=== PATIENT | female | born 1995 | race Caucasian/White ===

== ENCOUNTER 2018-10-31 10:11 | Day surgery (SDC) | payer MEDICAID, SELFPAY ==
--- NOTE | 2018-10-29 12:11 | PCM.HP.OB ---
- Problem List (1) Monochorionic diamniotic twin gestation Status: Acute (2) Missed Status: Acute History Date of Admission: 01/24/17 Gestational age: 9 weeks History of this : This is a 23 year-old who had an ultrasound on 10/27/2018 showing mono/di twins with fetus 1 measuring 9w1d with no cardiac activity and fetus 2 measuring 9w4d with no cardiac activity. She is having no bleeding or cramping or pain. She has no complaints. 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 Fibromyalgia M79.7 Hepatitis C B19.20 Lumbar vertebral fracture S32.009A Migraine G43.909 Panic attack F41.0 depression O99.345, F53.0 Scoliosis M41.9 Tobacco use Z72.0 Surgical History: Surgical History (Last Updated 10/29/18 @ 12:13 by Amalia Donohue DO) History of breast lump/mass excision Z98.890 Allergies aspirin Allergy (Verified 05/28/16 18:40) Swelling codeine Allergy (Verified 05/28/16 18:40) Hives Home Medications: Home Medications Albuterol Inhaler [Ventolin Hfa] 1 - 2 puff INHALATION Q4H PRN PRN #1 inhaler 05/28/16 Buprenorphine HCl/Naloxone HCl [Buprenorphin-Naloxon 8-2 mg Sl] 10/29/18 Vit 87/Iron/Folic/Dha [Prenate Mini Softgel] 10/29/18 Smoking Status: Heavy Smoker (>10/day) Alcohol: None History Past Pregnancies: Past Pregnancies Delivery Date Name GA/Weeks Outcome Route Weight Infant Gender Labor Length Anesthesia Delivery Location Provider FOB Review of Systems Constitutional: Denies: Fever Eyes: Denies: Blurred vision HEENT: Denies: Head Aches Cardiovascular: Denies: Chest Pain Respiratory: Denies: Shortness of Breath Gastrointestinal: Denies: Abdominal Pain Genitourinary: Denies: Dysuria Neurological: Denies: Headaches Hematologic/ Lymphatic: Denies: Easy Bruising, Easy Bleeding Physical Exam General: Alert, No apparent distress HEENT: Atraumatic Cardiovascular: Regular rate Lungs: Clear to auscultation Abdomen: Soft, Non Tender Extremities:: No edema Neurological: Neuro grossly intact Assessment/Plan All Active Problems Monochorionic diamniotic twin gestation (Acute) Missed (Acute) Head lice (Acute) Acute asthma exacerbation (Acute) Opioid withdrawal (Acute) This is a 23 year-old who presents for a suction D&C for 9 week MAB of mono/di twins. Reviewed r/b/a of surgery and consent signed as patient desires to proceed with suction D&C. Of note, h/o drug abuse and on Suboxone. Patient cannot have narcotic pain medication or benzos.
[2018-10-31] VITALS (7 sets, daily range): BP systolic 100–105; BP diastolic 44–66; PULSE 65–84; RESP 16; TEMP 36.4–37.5; O2SAT 96–100; BMI 23.8
[2018-10-31 11:06] LABS: Hematocrit 37.5 % (37-47); Hemoglobin 13.1 g/dl (12.0-15.0); Mean Corp Hgb Conc 34.9 g/gl (32-36); Mean Corpuscular Hgb 29.2 pg (27.0-32.0); Mean Corpuscular Volume 83.5 fL (81-99); Mean Platelet Vol. 10.9 fl (6.2-12.0); Platelet Count 171 K/mm3 (150-450); RBC Distribution Width SD 39.1 fl (35.1-43.9); Red Blood Count 4.49 M/mm3 (4.2-5.4); White Blood Count 6.4 K/mm3 (4.4-11.0)
[2018-10-31 11:09] LABS: Scan Indicated on CBC? Y/N NO
--- NOTE | 2018-10-31 12:52 | DCINST_ITS ---
Discharge Diet: No Restrictions Discharge Activity: Return to Normal Activity May shower in (days): 0 May resume sexual activity in: 1-2 weeks Weight Bearing Status: Full weight bearing Lifting Restrictions: None Call your doctor if you observe: Fever of 101 or Higher, Inability to urinate, Inability to have a bowel movement, Using more than one pad per hour, Shortness of breath, Dizziness, Chest pain, Increased palpitations (irregular heartbeat), Calf discomfort, Uncontrolled pain Allergies/Adverse Reactions: Allergies aspirin Allergy (Verified 05/28/16 18:40) Swelling codeine Allergy (Verified 05/28/16 18:40) Hives Medications to take at Discharge Albuterol Inhaler [Ventolin Hfa] 1 - 2 puff INHALATION Q4H PRN PRN #1 inhaler 05/28/16 Buprenorphine HCl/Naloxone HCl [Buprenorphin-Naloxon 8-2 mg Sl] 1 mg PO BID 10/29/18 Vit 87/Iron/Folic/Dha [Prenate Mini Softgel] 1 day PO DAILY 10/29/18 Primary Care Physician: Scar Riggs MD [Primary Care Provider] - Test Results: Test results from this visit will be discussed in further detail at your follow- up appointment, if applicable. Please Follow Up With: Amalia Donohue DO When: 1 week Proposed Discharge Date: 10/31/18
--- NOTE | 2018-10-31 12:54 | PCM.OPRPT ---
Problem List (1) Monochorionic diamniotic twin gestation Status: Acute (2) Missed Status: Acute Report of Operation Date of Procedure: 10/31/18 Pre-Operative Diagnosis: Twin MAB at 9 weeks gestation Post-Operative Diagnosis: As above Surgery/Procedure Performed:: Suction D&C under US guidance Description of Surgical Findings:: Uterus enlarged consistent with twin MAB at 9 weeks gestation. Products of conception noted upon suction D&C Type of Anesthesia:: MAC Special Medications: None Specimen's removed: Products of conception Drains: None Estimated Blood Loss (mL): 100 cc Fluids Replaced: 800 cc Description of Procedure: Patient prepped and draped in usual sterile fashion using yellow fin stirrups. A weighted speculum was placed in the vagina, and the cervix exposed. The anterior lip of the cervix was grasped with a single tooth tenaculum and the cervix was serially dilated to accommodate a size # 10 suction catheter. The suction curettage was advanced into the uterus several times to remove the tissue. A gentle sharp curettage was performed noted a good uterine cry and no additional tissue. An ultrasound was performed at the end of the case to confirm no additional products of conception remaining within the uterus. Uterus was firm and bleeding hemostatic at the end of the case. All instruments were removed from the vagina. The patient tolerated the procedure well and was taken to the recovery room in stable condition. Grafts/Implants Used: None - Complications None - Admit VTE Documentation VTE Present on Admission: No VTE Mechan Device Prophylaxis: SCD's VTE Pharm Prophylaxis ordered?: No
--- NOTE | 2018-10-31 13:13 | POC_PTH ---
PATIENT: ROMAN KIM [place] [facility] [place][id number] AGE/SX: ROOM: RE10/31/[address]: Dr. Amalia Donohue DO : 1995 BED: DIS: 10/31/2018 SPEC #: [id number] RECD: 10/31/18 14:00 STATUS: COSME HARESH #: [id number] CHETNA: 10/31/18 13:[address]: Amalia Donohue DEPT: SURGICAL PATHOLOGY RECD BY: Sidney Saavedra ENTERED: 11/03/18 12:05 SP TYPE: PROD CONC OTHR DR: Dr. Scar Riggs MD Tissues: Product of conception, NOS Procedures: Surgery Specimen Level IV HEADER OPERATION: D & C PRE-OP DIAGNOSIS: Anora chromosomal study TISSUE SUBMITTED: Products of conception MICROSCOPIC DIAGNOSIS Products of conception: Decidua, gestational endometrium, immature chorionic villi and tissue (products of conception). See comment. SJ:toña 11/03/18 COMMENT The results of chromosomal studies will be reported separately as an addendum. MICROSCOPIC DESCRIPTION Slides are reviewed. GROSS DESCRIPTION Received fresh and then postfixed in formalin labeled with the patient's name is a specimen designated products of conception. The specimen consists of multiple irregular fragments of pink-red soft tissue mixed with blood clot that in aggregate measure 5 x 5 x 2 cm. A portion of specimen is submitted for chromosomal studies as per Dr. Amalia Donohue's request. Linotype Machinist Apprentice tissue is submitted in two cassettes. / SJ:toña 10/31/18 TC: CPT: [id number]
== END 2018-10-31 15:00 | disposition home or self-care (01) ==
LOC: SDC 10:16 → AC 10:19
PROVIDERS: Family Provider Family Medicine; PCP Family Medicine; Referring Provider Obstetrics & Gynecology; Visit Provider Obstetrics & Gynecology
DX: O02.1 Missed abortion (principal); O30.031 Twin pregnancy, monochorionic/diamniotic, first trimester; Z3A.09 9 weeks gestation of pregnancy; F17.200 Nicotine dependence, unspecified, uncomplicated; K21.9 Gastro-esophageal reflux disease without esophagitis; J45.909 Unspecified asthma, uncomplicated; Z79.51 Long term (current) use of inhaled steroids; Z79.899 Other long term (current) drug therapy
CPT/HCPCS: 59820; 36415; 85027; 86850; 86900; 88305; J7050; J7120

== ENCOUNTER → 2019-11-09 | Outpatient (CLI) | payer MEDICAID, SELFPAY ==
[2018-10-31 11:19] VITALS: BMI 23.8
[2019-11-09 15:06] LABS: NATERA MAILED SPECIMEN
== END | disposition home or self-care (01) ==
PROVIDERS: PCP Family Medicine; Referring Provider Obstetrics & Gynecology; Visit Provider Obstetrics & Gynecology
DX: Z34.81 Encounter for supervision of other normal pregnancy, first trimester (principal)
CPT/HCPCS: 36415

== ENCOUNTER 2020-01-23 21:02 | Outpatient (CLI) | payer MEDICAID, SELFPAY ==
[2018-10-31 11:19] VITALS: BMI 23.8
[2020-01-23 21:23] VITALS: PULSE 93; O2SAT 98
[2020-01-23 21:33] VITALS: BMI 25.3
--- NOTE | 2020-01-23 22:05 | OB.TRI.NOTE ---
- Problem List (1) 23 weeks gestation of Status: Acute (2) Cramping affecting , antepartum Status: Acute (3) Vaginal bleeding in Status: Acute History of Present Illness Date of Service: 01/23/20 Was patient seen by the physician?: Yes Reason For Visit: BLEEDING AND CRAMPING Date of Service: 05/21/20 History of Present Illness: Patient states she was lifting heavy pumpkins all day, and then went to the restroom and noticed bright red bleeding. She had one episode of bleeding and she has had nothing since. She was also having cramping at that time that has since resolved. No leaking of fluid. +FM. No falls or abdominal trauma. No abdominal pain. Allergies aspirin Allergy (Verified 05/28/16 18:40) Swelling codeine Allergy (Verified 05/28/16 18:40) Hives - Pertinent Past Medical History Medical History: Past Medical History (Last Updated 10/29/18 @ 12:[address] Amalia Donohue, DO) ADHD Anemia Drug abuse in remission Fibromyalgia Hepatitis C Lumbar vertebral fracture Migraine Panic attack depression Scoliosis Tobacco use Surgical History: Past Surgical History (Last Updated 10/29/18 @ 12:[address] Amalia Donohue, DO) History of breast lump/mass excision Physical Exam Vitals: Vital Signs Pulse Pulse Ox 93 98 01/23/20 21:23 01/23/20 21:23 General: Alert, No apparent distress Abdomen: Soft, Non Tender, Gravid Neurological: Neuro grossly intact DEPLOYMENT TECHNICIAN: Normal external genitalia Estimated gestational size: Appropriate for gestational size Presentation: Cephalic Cervix Dilation (cm): 0 Station: -3 Effacement (%): 0 Impression/Plan TAUS: Grossly normal fluid, normal appearing placenta, + movement, +FHT Cvx c/t/h Discussed to take off work tomorrow to rest. Ok to return on Saturday. Has follow up in office this week. D/c home with return precautions
[2020-01-23 22:12] LABS: Color, Urine Yellow (Yellow); Glucose, Dipstick Normal (Normal); Ketone-Dipstick 5 mg/dl (Negative); Leukocyte Esterase-Dipstick 100 /ul (Negative); Nitrite-Dipstick Negative (Negative); Occult Blood-Urine Negative /ul (Negative); Protein-Dipstick 15 mg/dl (Negative); Urine Clarity Cloudy (Clear); Urine Urobilinogen 4 mg/dl (Normal); Urine pH 6.5 (5.0 - 8.0)
[2020-01-23 22:22] LABS: Urine Bilirubin Dipstick 1 mg/dL (Negative)
== END 2020-01-23 21:40 | disposition home or self-care (01) ==
LOC: WPOUT 21:16 → WP 21:17
PROVIDERS: PCP Family Medicine; Visit Provider Obstetrics & Gynecology
DX: O46.92 Antepartum hemorrhage, unspecified, second trimester (principal); Z3A.23 23 weeks gestation of pregnancy
CPT/HCPCS: 59050; 81002; 99218; G0378

== ENCOUNTER → 2020-05-16 17:17 | Outpatient (CLI) | payer MEDICAID, SELFPAY ==
[2020-02-23 16:10] VITALS: BMI 25.3
== END ==
PROVIDERS: PCP Family Medicine; Referring Provider Obstetrics & Gynecology; Visit Provider Obstetrics & Gynecology
DX: Z03.818 Encounter for observation for suspected exposure to other biological agents ruled out (principal)
CPT/HCPCS: 87635; C9803; U0005; U0003

== ENCOUNTER 2020-05-19 07:30 | Inpatient (IN) | payer MEDICAID, SELFPAY ==
[2020-02-23 16:10] VITALS: BMI 25.3
[2020-05-19] VITALS (63 sets, daily range): BP systolic 82–156; BP diastolic 47–115; PULSE 65–202; TEMP 36.4–37.4; O2SAT 82–100; BMI 25.9
[2020-05-19] MEDS: Lactated Ringers 1,000 ML 50 ML IV (07:45)
[2020-05-19 08:11] LABS: Absolute Lymphocyte Count 3.08 X10^3/uL (0.83-4.51); Absolute Neutrophil Count 7.4 X10^3/uL (2.0-7.7); Basophil# 0.07 X10^3/uL; Basophil% 0.6 % (0-1); Eosinophils% 2.5 % (0-5); Hematocrit 32.5 % (37-47); Hemoglobin 10.8 g/dL (12.0-15.0); Lymphocyte # 3.08 X10^3/ul (4.0); Lymphocyte % 25.4 % (19-41); Mean Corp Hgb Conc 33.2 g/dL (32-36); Mean Corpuscular Hgb 27.1 pg (27.0-32.0); Mean Corpuscular Volume 81.5 fL (81-99); Monocyte# 0.97 X10^3/uL; NRBC Flagged by Analyzer 0 % (0-5); Neutrophil # 7.43 X10^3/uL (2.7-7.7); Neutrophil % 61.3 % (47-70); Platelet Count 215 K/mm3 (150-450); RBC Distribution Width CV 12.6 % (11.6-14.6); Red Blood Count 3.99 M/mm3 (4.2-5.4); White Blood Count 12.1 K/mm3 (4.4-11.0)
[2020-05-19] MEDS: Oxytocin 30 units/NS 500 ml 30 UNITS/500 ML IV.SOLN IV (08:17)
[2020-05-19 08:21] LABS: Amphetamine Urine VISTA NEGATIVE (<1000 ng/mL); Barbiturate Urine VISTA NEGATIVE (< 200 ng/mL); Benzodiazepine Urine VISTA NEGATIVE (< 200 ng/mL); Cocaine Urine VISTA NEGATIVE (< 300 ng/mL); Ecstacy Urine VISTA NEGATIVE (< 500 ng/mL); Methadone Urine VISTA NEGATIVE (< 300 ng/mL); PCP Urine VISTA NEGATIVE (< 25 ng/mL); THC Urine VISTA NEGATIVE (< 50 ng/mL); Vista UDS pH Range 6
--- NOTE | 2020-05-19 08:45 | HP.PCM_ITS ---
History Date of Admission: 05/19/20 Final DAIANA: 05/21/20 Gestational age: 39 Weeks and 6 Days History of this : This is a 24 year-old, G [], P [], at 39 weeks gestational age. Medical History: Medical History (Last Updated 10/29/18 @ 12:[address] 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 Amalia Donohue, DO) History of breast lump/mass excision Z98.890 Allergies aspirin Allergy (Verified 05/28/16 18:40) Swelling codeine Allergy (Verified 05/28/16 18:40) Hives Home Medications: Home Medications Albuterol Inhaler [Ventolin Hfa] 1 - 2 puff INHALATION Q4H PRN PRN #1 inhaler 05/28/16 Buprenorphine HCl/Naloxone HCl [Buprenorphin-Naloxon 8-2 mg Sl] 1 tab SL BREAKFAST 10/29/18 Vit 87/Iron/Folic/Dha [Prenate Mini Softgel] 1 day PO DAILY 10/29/18 Buprenorphin-Naloxon 8-2 mg Sl 0.5 tab SL DAILY 05/19/20 Buprenorphin-Naloxon 8-2 mg Sl 0.5 tab SL QHS 05/19/20 Smoking Status: Current every day smoker Substance Use Type: Prescribed Number of Fetus(es): 1 NST - FHR Rate Baby A Baseline: 130 Variability:: Moderate Accelerations:: 15 x 15 Decelerations:: Variable NST Reactive:: Yes Uterine Activity:: Irregular History Past Pregnancies: Past Pregnancies Delivery Date Name GA/ Weeks Outcome Route Wt Sex Labor Length Anesthesia Delivery Location Provider FOB Labs: See [facility] H[facility]P Physical Exam Vitals: Vital Signs Temp Pulse BP Pulse Ox 98.7 F 102 H 121/78 H 98 05/19/20 07:51 05/19/20 07:51 05/19/20 07:51 05/19/20 07:51 General: Alert, Oriented x3 Abdomen: Soft, Non Tender, Non-Distended, Gravid Neurological: Cranial nerves II-XII grossly intact SUPERVISOR TILE AND MOTTLE: Normal external genitalia Estimated gestational size: Appropriate for gestational size Cervix Dilation (cm): 1.5 - AROM clear fluid Station: -2 Effacement (%): 50 Assessment/Plan All Active Problems (Last Updated 10/29/18 @ 12:[address] Amalia Donohue, DO) Opioid withdrawal (Acute) Acute asthma exacerbation (Acute) Head lice (Acute) Monochorionic diamniotic twin gestation (Acute) Missed (Acute) 23 weeks gestation of (Acute) Cramping affecting , antepartum (Acute) Vaginal bleeding in (Acute) This is a 24 year-old, G4, P1021, at 39&5 weeks gestational age. Admit to L&D Induction for suboxone use in - s/p AROM & IUPC placement, on pitocin GBS negative COVID test pending Pain - epidural as desired EFW - less than 4500g, patient with adequate pelvis H/o Hep C - RNA viral load negative
[2020-05-19 13:08] LABS: Amphetamine Urine VISTA NEGATIVE (<1000 ng/mL); Barbiturate Urine VISTA NEGATIVE (< 200 ng/mL); Benzodiazepine Urine VISTA NEGATIVE (< 200 ng/mL); Cocaine Urine VISTA NEGATIVE (< 300 ng/mL); Ecstacy Urine VISTA NEGATIVE (< 500 ng/mL); Methadone Urine VISTA NEGATIVE (< 300 ng/mL); PCP Urine VISTA NEGATIVE (< 25 ng/mL); THC Urine VISTA NEGATIVE (< 50 ng/mL); Vista UDS pH Range 6
--- NOTE | 2020-05-19 14:49 | NURSING ---
Patient and significant other have been calm and appropriate since arrival. Patient was alert on arrival and spend time sitting on a birthing ball during admission. She took her morning dose of Suboxone with Dr. Lubin' permission. Following her 10:00 dose, patient became very sleepy. She explained that she had not gotten much sleep last night and wanted to take a nap. Assisted patient to bed. Since falling asleep close to four hours ago, patient arouses only to touch, not verbal stimulus. Once awakened, she breathes through contractions but falls asleep before she can respond to my questions. Her eyes seem to have trouble focusing on me while awake. She sleeps soundly through contractions that palpate strong. The patient will follow directions and is compliant. Her significant other, Lj, has also been sleeping soundly on the couch for close to four hours. I needed to wake him to ask a question, and had to shake his leg and say his name loudly and repeatedly to wake him up. He seemed disoriented for the first five minutes of being awake. Dr. Lubin and anesthesia notified of patient's drowsiness despite strong contractions. I also witnessed the patient supplying her 12:30 urine drug screen sample.
[2020-05-19] MEDS: Lactated Ringers 500 ML 999 ML IV ×2 (15:34→19:48)
[2020-05-19] MEDS: fentaNYL-bupivacaine (epidural) 100 ML BAG EPIDURAL ×2 (17:07→21:18)
[2020-05-19] MEDS: Lactated Ringers 1,000 ML 200 ML IV (19:30)
[2020-05-19] MEDS: BUPRENORPHINE HCL/NALOXONE HCL 1 EACH TAB.SUBL SL (20:56)
[2020-05-19] MEDS: Acetaminophen 500 MG Tablet PO (22:15)
[2020-05-19] MEDS: Oxytocin 30 units/NS 500 ml 30 UNITS/500 ML IV.SOLN 334 UNITS IV (23:49)
[2020-05-20] VITALS (16 sets, daily range): BP systolic 96–126; BP diastolic 51–65; PULSE 70–120; RESP 14–18; TEMP 36.3–37.6; O2SAT 98–100
--- NOTE | 2020-05-20 00:12 | OP.PCM_ITS ---
Vaginal Delivery Maternal Presentation: Medically Indicated Induction Method of Induction: Pitocin, Amniotomy Medical Reason for Induction: Maternal Medical Condition: list: - maternal suboxone use in Amniotic Membrane Rupture Type: Artificial Amniotic Fluid Description: Clear Final DAIANA: 05/21/20 Gestational age: 39 Weeks and 5 Days Date of Procedure: 05/19/20 Pre-Operative Diagnosis: Maternal suboxone use in Post-Operative Diagnosis: Same Surgery/ Procedure Performed: Vacuum Assisted Vaginal Delivery Type of Anesthesia: Epidural Description of Procedure: Patient prepped & draped in stirrups when C/C/+2. She pushed well but FHT's were intermittently decreased to 70's to 80's. The decision was made to use vacuum. head position had been assessed prior to this time. Vacuum placed on head & position confirmed. With next ctx good descent was noted with maternal push & vacuum pull. Vacuum released. Patient pushed with her next ctx without the vacuum. Vacuum replaced & head began to crown with next ctx. Vacuum removed & 2nd degree episiotomy cut. Vacuum replaced & with next ctx & pull of the vacuum the head delivered. Vacuum released. head gently guided to allow delivery of anterior and posterior shoulders. No excess traction placed on head. Body delivered and infant placed on maternal abdomen. 3VC clamped & cut in delayed fashion. Placenta delivered wi th gentle traction and good uterine tone obtained. Presentation: GUIDO Placental Delivery Description: Expressed Placenta Disposition: [facility] Cord Vessel Description: 3 Vessels Cord Gases drawn per routine: VBG Cord Entanglement: None Estimated Blood Loss: 350ml A gender: Female - Arti (1 minute): 8 (5 minute): 9 Episiotomy Description: 2nd degree - perineal - repaired with 3-0 vicryl Laceration: None Medications given after delivery: IV Pitocin Complications: None
--- NOTE | 2020-05-20 03:40 | NURSING ---
RN in room to do vital signs, multiple attempts made to wake mother. While in room mom asked RN how much baby weighed and if she could have a bath. Nursery nurse confirms mom was awake and watching when she weighed baby and gave first bath.
[2020-05-20] MEDS: Ibuprofen 600 MG Tablet PO ×3 (04:29→20:24)
--- NOTE | 2020-05-20 08:31 | PCM.PN.OB ---
Subjective: Patient feeling good. Ambulating and voiding without difficulty. . Pain controlled. receiving BETTY scoring and will remain on unit for 5 days. Patient desires hotel status once discharged. - Physical Exam Vitals/I&O's: Vital Signs Temp Pulse Resp BP Pulse Ox 99.1 F 79 16 115/59 L 98 05/20/20 03:56 05/20/20 03:56 05/20/20 03:50 05/20/20 03:56 05/20/20 03:56 Oxygen Delivery Method Room Air Weight: 160 lb 7.944 oz Body Mass Index (BMI) 25.9 Intake and Output for Last 24 Hours 05/18/20 05/19/20 05/20/20 23:59 23:59 23:59 Intake Total 3027.52 / 3027.52 500.00 / 500.00 Output Total 1050 / 1050 900 / 900 Balance 1977.52 / 1976.52 -400.00 / -400.00 General: Alert HEENT: Atraumatic Oral: Moist Mucosa Lungs: Normal air movement Cardiovascular: Regular rate Abdomen: Soft, Non Tender Neurological: Cranial nerves II-XII grossly intact Microbiology Past 72 Hours 05/19/20 12:20 Mucosa - Nose SARS-CoV-2 Antigen (Rapid) - Final Laboratory Results 05/19/20 07:50: Blood Type A POSITIVE, Antibody Screen NEGATIVE 05/19/20 12:30: Urine Opiates Screen NEGATIVE, Urine Methadone Screen NEGATIVE, Ur Barbiturates Screen NEGATIVE, Ur Phencyclidine Scrn NEGATIVE, Ur Amphetamines Screen NEGATIVE, U Methamphetamin-MDMA NEGATIVE, U Benzodiazepines Scrn NEGATIVE, Urine Cocaine Screen NEGATIVE, U Cannabinoids Screen NEGATIVE, Ur Drug Screen Comment Current Medications Acetaminophen (Acetaminophen 500 Mg Tablet) 1,000 mg PO Q8H PRN PRN PRN Reason: Pain Score 1-3 Albuterol Sulfate (Albuterol 2.5 Mg/3 Ml Vial.Neb.) 2.5 mg INHALATION Q4H PRN PRN PRN Reason: WHEEZING Bisacodyl (Bisacodyl 10 Mg Suppository) 10 mg RECTAL UD PRN PRN Reason: If no BM Buprenorphine HCl (Buprenorphine Hcl/Naloxone Hcl 1 Each Tab.Subl) 0.5 each SL DAILY@1600 GIGI Buprenorphine HCl (Buprenorphine Hcl/Naloxone Hcl 1 Each Tab.Subl) 0.5 each SL QHS GIGI Buprenorphine HCl (Buprenorphine Hcl/Naloxone Hcl 1 Each Tab.Subl) 1 each SL BREAKFAST GIGI Dibucaine (Dibucaine 30 Gm Tube) 1 applic TOPICAL TID PRN PRN; Protocol PRN Reason: Discomfort Hydrocortisone (Hydrocortisone 2.5% Crm) 1 applic TOPICAL TID PRN PRN; Protocol PRN Reason: Discomfort Ibuprofen (Ibuprofen 600 Mg Tablet) 600 mg PO Q6H PRN PRN PRN Reason: Pain Score 1-3 Last Admin: 05/20/20 04:29 Dose: 600 mg Documented by: Methylergonovine Maleate (Methylergonovine 0.2 Mg/Ml Ampul) 0.2 mg IM X1 PRN PRN Reason: Excess bleeding/uterine atony Ondansetron HCl (Ondansetron 4 Mg/2 Ml Vial) 4 mg IV Q4H PRN PRN PRN Reason: Nausea Multivit/Folic Acid/Iron ( Vits Tablet) 1 tablet PO DAILY GIGI Senna/Docusate Sodium (Senna/Docusate Sodium 1 Tablet) 1 - 2 tablet PO DAILY PRN PRN PRN Reason: Constipation Simethicone (Simethicone 80 Mg Tablet) 80 mg PO PCHS PRN PRN Reason: Indigestion/Stomach pain Sodium Chloride (0.9% Saline Lock 10 Ml Syringe) 5 - 15 ml IV UD PRN PRN Reason: SALINE FLUSH Medical Necessity - Tobacco Use Smoking Status: Current every day smoker Assessment/Plan All Active Problems (Last Updated 10/29/18 @ 12:[address] Amalia Donohue, DO) Opioid withdrawal (Acute) Acute asthma exacerbation (Acute) Head lice (Acute) Monochorionic diamniotic twin gestation (Acute) Missed (Acute) 23 weeks gestation of (Acute) Cramping affecting , antepartum (Acute) Vaginal bleeding in (Acute) PPD #1 Vacuum assisted delivery- 2nd degree epi Pain controlled support Anticipate discharge home tomorrow/ hotel status
[2020-05-20] MEDS: BUPRENORPHINE HCL/NALOXONE HCL 1 EACH TAB.SUBL SL (08:48)
[2020-05-20] MEDS: Prenatal Vits Tablet 1 TABLET PO (10:53)
[2020-05-20] MEDS: BUPRENORPHINE HCL/NALOXONE HCL 1 EACH TAB.SUBL 0.5 EACH SL ×2 (16:42→22:12)
--- NOTE | 2020-05-20 18:11 | CASEMGMT ---
Social Work Assessment Labor and Delivery Unit Patient Address: [address] [place] [address] Phone number: [phone] Date of Referral: 05/19/2020 Time of Referral: 1200 Referred By: Verbal notification by nursing staff Date of Intervention: 05/20/2020 Time of Intervention: 1445 Reason for Referral: Mother of baby (MOB) and father of baby (FOB) both on medication assisted treatment program for opiates. History obtained from: Medical records and MOB Teri Davidson; FOB present to room near end of conversation. Household composition: MOB reports to live in a house with the FOB and their older daughter, which is located just across the road from the FOB's parents. MOB reports home situation is safe and adequate. Patient's parent/guardian status: MOB is a 24-year-old single female involved with the FOB Lj Nickerson since about 2013. MOB denies any safety concerns with the FOB or history of violence. MOB and FOB now have 2 children together. Minor children include: Shirlene (born 04.09.2016) and baby Dianelys (born 05.10.20). MOB reports that the FOB is mother Kate Nickerson typically has custody of the oldest child, although the child does live in the home with the parents. Medical History: MOB is 4, para 1 now 2. care during this started at 4 weeks gestation and regular thereafter. The MOB has a reported history of hepatitis C which is now resolved without medication intervention. Reported history of fibromyalgia. History of 2 miscarriages, one in 2011 and another in 2018. MOB reports the in 2019 was a 10-week loss of twins. [place] baby delivered on 05/19/2020 with Apgars 8 and 9 at 1 and 5 minutes of life respectively. weight was 7 pounds 2 ounces. Gestational age at was 39 weeks. Educational Status: MOB graduated from high school. No reported issues with reading, writing, or learning comprehension. Financial Status: MOB was working at [employer] in [place]. Works part-time. FOB works full-time at a dairy farm. Financial situation is reported to be adequate. Supplies: MOB reports to have needed baby supplies including a pack and play, bassinet, crib, car seat, clothing, diapers, wipes, breast pump, and bottles. MOB is planning to breast-feed. Childcare/Caregiver(s): MOB and FOB plan to be the primary caregivers. Transportation: MOB and FOB both report to have meals on wheels driver's license and vehicles to drive. Programs/Agencies Involved: MOB is active with [facility] for medical. Active with WIC. Active with [facility]. Active with [facility] for outpatient counseling and medication assisted treatment with Suboxone. MOB reports involvement since November 2016. Children Services/Legal Issues: No current legal charges reported. MOB does have a history of a DUI. History of [facility] children services after the of their oldest child due to substance exposure in utero. Possible involvement when MOB relapsed in 2017. MOB reports at the time of relapse, this was when the FOB's mother obtained custody of the oldest child. MOB denies any current children services involvement. Behavioral Health Issues: Mental Health History: ARNEL has a history of ADHD, depression, and anxiety. Has been off of medication for about 3 years. History of depression. MOB reports the depression was more of not feeling like she could take care of the baby, because the baby had bonded more with the father of baby. MOB reports this feeling lasted for couple of weeks. Denies any history of suicidal ideations, intent, or actions. Substance Use History: ARNEL reports that she has basically tried every drug occluding alcohol. Drug of choice though was opiates including heroin. History of IV drug use. 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 ARNEL reports since relapsing around November or December in 2016 she has been sober and actively engaged with the medication assisted treatment program, being treated with Suboxone. MOB reports treatment with Suboxone rather than Subutex during this . Family History: Chart indicates the MOB parents and a maternal grandfather with history of alcoholism. MOB brother with a history of autism. The FOB himself has a history of opiate use disorder and is currently on Suboxone and attending treatment at the same agency as ARNEL. Drug Screens: MOB had a negative drug screen on 09/17/2019 and at time of delivery on 05/19/2019. Buprenorphine was not tested. Baby's urine drug screen is still pending collection. Meconium drug screen is pending. BETTY: Scores have been 0-2 thus far for the baby. Family/Social Stressors: Unplanned , but excepted. MOB reports that this was difficult learning she was , because wanted to be off of Suboxone for . Support Systems: MOB reports to have good support from FOB's parents and the MOB mom. Depression/Shaken Baby/Safe Sleeping information will be reviewed and discussed at future social work encounter. ASSESSMENT: Met with the MOB in room, introducing to self and social work role. MOB holding the baby and held baby for the duration of social work visit. MOB agreeable and cooperative with meeting with social media analyst. Eye contact normal. Calm demeanor. Speech within normal limits. The FOB entered the room near the end of conversation. Eye contact with the father of baby was limited, father of baby intermittently on phone, and only spoke when directly spoken to. FOB more disengaged but polite. MOB reports to have needed supplies to care for the baby, and to have adequate support. MOB reports that her oldest child is currently being cared for by the paternal grandparents who technically have custody. This promotion writer had noted in the MOB chart releases of information and letters from the MOB nurse practitioner in the MAT program regarding MOB compliance within said program. MOB broached this subject with this promotion writer. MOB reports she wanted to be prepared so that all appropriate parties could get needed information. MOB reports she was not sure if children services would be getting involved, but thought this could happen, and wanted children services also to have access is needed. Let MOB know that children services does need to be called due to the care at although this promotion writer uncertain whether a case will be opened. MOB denied having any questions for this promotion writer at this time and agreeable with social media analyst coming back at a later time. This promotion writer did note in the chart nursing documentation regarding concerns about the level of sleepiness on the parents part. This is a concern if the parents are typically this tired at home, and how this would correlate into safe care of the baby throughout the night. Nursing documentation appreciated. Note the MOB mentioned to this promotion writer that the FOB just in a stop his medication regiment for hepatitis C, and that a residual effect of this medication is excessive sleepiness. Safe Plan of Care for related to substance use: Continue with current medication assisted treatment program and abstain from illicit substance use. PLAN: We will plan to meet with the family again on 05/23/2020, as time allows. Will continue monitoring BETTY scoring for the baby. Plan to call [facility] services due to the care act and substance exposed infants. Uncertain whether case will be opened. Will follow up with the family for provision of information on mood and anxiety disorders. -OPAL Gallardo, SPRING TESTER *Information documented in this assessment generated with [employer]*
[2020-05-20] MEDS: Acetaminophen 500 MG Tablet 1000 MG PO (18:27)
[2020-05-21 01:15] VITALS: BP 109/58; PULSE 82; RESP 18; TEMP 36.2
[2020-05-21] MEDS: Ibuprofen 600 MG Tablet PO (03:02)
[2020-05-21] MEDS: Prenatal Vits Tablet 1 TABLET PO (08:37)
[2020-05-21] MEDS: BUPRENORPHINE HCL/NALOXONE HCL 1 EACH TAB.SUBL SL (08:37)
[2020-05-21 08:56] VITALS: BP 115/73; PULSE 81; RESP 16; TEMP 36.8
--- NOTE | 2020-05-21 10:37 | PCM.PN.OB ---
Subjective: Patient resting comfortably with pain control. . Ambulating and voiding without difficulty. Desires discharge home but will go to [facility] status due to BETTY scoring. - Physical Exam Vitals/I&O's: Vital Signs Temp Pulse Resp BP Pulse Ox 98.3 F 81 16 115/73 98 05/21/20 08:56 05/21/20 08:56 05/21/20 08:56 05/21/20 08:56 05/20/20 03:56 Oxygen Delivery Method Room Air Weight: 160 lb 7.944 oz Body Mass Index (BMI) 25.9 Intake and Output for Last 24 Hours 05/19/20 05/20/20 05/21/20 23:59 23:59 23:59 Intake Total 3027.52 / 3027.52 500.00 / 500.00 Output Total 1050 / 1050 900 / 900 Balance 1977.52 / 1976.52 -400.00 / -400.00 General: Alert, Oriented x3, Cooperative HEENT: Atraumatic, PERRLA, EOMI, Normocephalic Neck: Supple Lungs: Normal air movement Cardiovascular: Regular rate Abdomen: Soft, Non Tender Skin: No rashes Lymphatic: No Cervical, Supraclavicular, or Inguinal Adenopathy Neurological: Cranial nerves II-XII grossly intact Microbiology Past 72 Hours 05/19/20 12:20 Mucosa - Nose SARS-CoV-2 Antigen (Rapid) - Final Current Medications Acetaminophen (Acetaminophen 500 Mg Tablet) 1,000 mg PO Q8H PRN PRN PRN Reason: Pain Score 1-3 Last Admin: 05/20/20 18:27 Dose: 1,000 mg Documented by: Albuterol Sulfate (Albuterol 2.5 Mg/3 Ml Vial.Neb.) 2.5 mg INHALATION Q4H PRN PRN PRN Reason: WHEEZING Bisacodyl (Bisacodyl 10 Mg Suppository) 10 mg RECTAL UD PRN PRN Reason: If no BM Buprenorphine HCl (Buprenorphine Hcl/Naloxone Hcl 1 Each Tab.Subl) 0.5 each SL DAILY@1600 GIGI Last Admin: 05/20/20 16:42 Dose: 0.5 each Documented by: Buprenorphine HCl (Buprenorphine Hcl/Naloxone Hcl 1 Each Tab.Subl) 0.5 each SL QHS [facility] Last Admin: 05/20/20 22:12 Dose: 0.5 each Documented by: Buprenorphine HCl (Buprenorphine Hcl/Naloxone Hcl 1 Each Tab.Subl) 1 each SL BREAKFAST [facility] Last Admin: 05/21/20 08:37 Dose: 1 each Documented by: Dibucaine (Dibucaine 30 Gm Tube) 1 applic TOPICAL TID PRN PRN; Protocol PRN Reason: Discomfort Hydrocortisone (Hydrocortisone 2.5% Crm) 1 applic TOPICAL TID PRN PRN; Protocol PRN Reason: Discomfort Ibuprofen (Ibuprofen 600 Mg Tablet) 600 mg PO Q6H PRN PRN PRN Reason: Pain Score 1-3 Last Admin: 05/21/20 03:02 Dose: 600 mg Documented by: Methylergonovine Maleate (Methylergonovine 0.2 Mg/Ml Ampul) 0.2 mg IM X1 PRN PRN Reason: Excess bleeding/uterine atony Ondansetron HCl (Ondansetron 4 Mg/2 Ml Vial) 4 mg IV Q4H PRN PRN PRN Reason: Nausea Multivit/Folic Acid/Iron ( Vits Tablet) 1 tablet PO DAILY [facility] Last Admin: 05/21/20 08:37 Dose: 1 tablet Documented by: Senna/Docusate Sodium (Senna/Docusate Sodium 1 Tablet) 1 - 2 tablet PO DAILY PRN PRN PRN Reason: Constipation Simethicone (Simethicone 80 Mg Tablet) 80 mg PO PCHS PRN PRN Reason: Indigestion/Stomach pain Sodium Chloride (0.9% Saline Lock 10 Ml Syringe) 5 - 15 ml IV UD PRN PRN Reason: SALINE FLUSH Medical Necessity - Tobacco Use Smoking Status: Current every day smoker Assessment/Plan All Active Problems (Last Updated 10/29/18 @ 12:[address] Amalia Donohue, DO) Opioid withdrawal (Acute) Acute asthma exacerbation (Acute) Head lice (Acute) Monochorionic diamniotic twin gestation (Acute) Missed (Acute) 23 weeks gestation of (Acute) Cramping affecting , antepartum (Acute) Vaginal bleeding in (Acute) PPD #2 - 2nd degree Routine care support Discharge home- Hotel status
--- NOTE | 2020-05-21 10:47 | DCINST_ITS ---
Discharge Diet: No Restrictions May resume sexual activity in: 6-8 weeks Weight Bearing Status: Weight bearing as tolerated Additional Instructions: If you experience any of the following, contact your healthcare provider. * Bleeding that soaks a pad every hour for 2 hours * Fever 100.4 or higher * Unrelieved incision or abdominal pain * Swelling, redness, discharge or bleeding from your incision or episiotomy site * Your incision begins to separate * Problems urinating (including inability to urinate or burning while urinating). * Visual changes * Severe headache * Flu-like symptoms * Pain or redness in one of both of your breasts * Pain, warmth, tenderness or swelling in your legs, especially the calf area * Frequent nausea and vomiting * Symptoms of depression or anxiety If you experience any of the following, call 911 or go to the nearest Emergency Room. * Chest pain * Problems breathing * Seizure activity * Partial or complete paralysis of a body part, slurred speech, weakness or drooping of the face, or a sudden inability to walk or hold your balance Allergies/Adverse Reactions: Allergies aspirin Allergy (Verified 05/28/16 18:40) Swelling codeine Allergy (Verified 05/28/16 18:40) Hives Medications to take at Discharge Albuterol Inhaler [Ventolin Hfa] 1 - 2 puff INHALATION Q4H PRN PRN #1 inhaler 05/28/16 Buprenorphine HCl/Naloxone HCl [Buprenorphin-Naloxon 8-2 mg Sl] 1 tab SL BREAKFAST 10/29/18 Vit 87/Iron/Folic/Dha [Prenate Mini Softgel] 1 day PO DAILY 10/29/18 Buprenorphin-Naloxon 8-2 mg Sl 0.5 tab SL DAILY 05/19/20 Buprenorphin-Naloxon 8-2 mg Sl 0.5 tab SL QHS 05/19/20 Ibuprofen [Motrin] 600 mg PO Q6H PRN PRN #30 tab 05/21/20 The following prescriptions were given: Ibuprofen [Motrin] 600 mg PO Q6H PRN PRN #30 tab PRN Reason: Pain Score 1-3 Transmission Status: Pending to [id number] Please Follow Up With: office When: 2 weeks virtual visit and 6 weeks in office Primary Care Physician: Scar Riggs MD [Primary Care Provider] - Test Results: Test results from this visit will be discussed in further detail at your follow- up appointment, if applicable.
[2020-05-21 12:10] VITALS: BP 104/62; PULSE 64; RESP 16; TEMP 36.6
[2020-05-21] MEDS: Senna/Docusate Sodium 1 Tablet PO (12:55)
--- NOTE | 2020-05-23 10:59 | CASEMGMT ---
Social Work Labor and Delivery Unit Summary: Medical records reviewed. Baby continues with BETTY monitoring at this time and mother of baby (MOB) has been discharged as a patient to hotel status, remaining on the unit to care for baby who is still a patient. Called [facility] ([facility]) and spoke with Karishma Celeste at [facility] ([phone], extension [phone]). Referral due to substance exposed in utero to Suboxone. Reported that both MOB and father of baby (FOB) have history of opiate use issues, and both presented to hospital with letters from outpatient treatment provider indicating that the parents have been adherent to treatment programming. Reported concerns about levels of sleepiness in the parents early on in the stay, and family's past history with [facility]. Reported that older child reportedly in custody of the child's paternal grandmother, but that the child lives in the home with MOB and FOB. Assessment: Uncertain whether this referral will be screened in for investigation by children service. Parents are actively engaged in outpatient treatment at [facility]. Plan: Social work to follow and assist as needs arise while baby remains in the hospital. -CALI Gallardo, HOME SERVICE DIRECTOR
--- NOTE | 2020-05-24 15:06 | CASEMGMT ---
Social Work Labor and Delivery Unit Summary: See detailed noted in the baby's chart, which is linked to this patient's delivery record. [facility] ([facility]) did open case for investigation based on referral this scientific technical writer provided on 05.23.20. Kirk Aquino is the assigned worker. MOB signed release of information to give Kirk a copy of HERI on file for [facility] and Children services, as well as letter from treatment provider. MOB reports meeting with Kirk went well. For continuity of care and per MOB wanting all agencies to have same information provided Kirk with paperwork noted above. Plan: ARNEL has been discharged as a patient, but social work remains involved while the baby is in hospital for BETTY monitoring. -CALI Gallardo, SHEETER MACHINE OPERATOR
== END 2020-05-21 14:00 | disposition home or self-care (01) | DRG 560 ==
PROVIDERS: Admitting Provider Obstetrics & Gynecology; PCP Family Medicine; Visit Provider Obstetrics & Gynecology
DX: O99.324 Drug use complicating childbirth (principal); F11.90 Opioid use, unspecified, uncomplicated; O99.02 Anemia complicating childbirth; D64.9 Anemia, unspecified; O99.334 Smoking (tobacco) complicating childbirth; F17.200 Nicotine dependence, unspecified, uncomplicated; O70.1 Second degree perineal laceration during delivery; Z3A.39 39 weeks gestation of pregnancy; Z37.0 Single live birth
CPT/HCPCS: 59025; 59050; 80307; 85025; 86850; 86900; 86901; 87426; 87635; 99218; C9803; J7030; J7120; U0005; G0378; U0003

== ENCOUNTER 2020-12-11 01:19 | Emergency (ER) | payer MEDICAID, SELFPAY ==
[2020-08-03 17:13] VITALS: BMI 25.9
[2020-12-11 01:19] VITALS: BP 130/87; PULSE 68; RESP 16; TEMP 36.9; O2SAT 100
[2020-12-11 01:20] VITALS: BP 130/87; PULSE 68; RESP 16; TEMP 36.9; O2SAT 100; BMI 23.5
--- NOTE | 2020-12-11 01:28 | EX.ED.DYSGE1 ---
HPI History of Present Illness Chief Complaint: Wound Informant: patient Onset/Context/Timing Onset: Today Current Severity: Mild Maximum Severity: Mild Narrative Narrative: Patient presents with a laceration to the bottom of her left third toe. She states she caught it on the metal bracket on the edge of a step. She is unsure of her last tetanus update. PFSH PFSH Medical History ADHD Anemia Drug abuse in remission Fibromyalgia Hepatitis C Lumbar vertebral fracture Migraine Panic attack depression Scoliosis Tobacco use Home Medications albuterol sulfate [Ventolin HFA] 1 - 2 puff INHALATION Q4H PRN PRN #1 inhaler 05/28/16 [Rx Last Taken Unknown] buprenorphine-naloxone 1 tab SL BREAKFAST 10/29/18 [History Last Taken 05/19/20 10:00 8 mg] vit 85-[id number]-dha 1 day PO DAILY 10/29/18 [History Last Taken 01/23/20 10:00] Buprenorphin-Naloxon 8-2 mg Sl 0.5 tab SUBLINGUAL DAILY 05/19/20 [History Last Taken 05/18/20 16:00] Buprenorphin-Naloxon 8-2 mg Sl 0.5 tab SUBLINGUAL QHS 05/19/20 [History Last Taken 05/18/20 21:00] ibuprofen 600 mg PO Q6H PRN PRN #30 tab 05/21/20 [Rx Last Taken Unknown] Allergy/AdvReac Type Severity Reaction Status Date / Time amoxicillin Allergy Hives Verified 12/11/20 01:24 aspirin Allergy Swelling Verified 05/28/16 18:40 codeine Allergy Hives Verified 05/28/16 18:40 Penicillins [PCN] Allergy Hives Verified 12/11/20 01:24 Surgical History History of breast lump/mass excision Social History Smoking Status: Current every day smoker tobacco type: cigarettes ROS ROS ED Constitutional Constitutional ED: Denies chills or fever(s) Cardiovascular Cardiovascular: Denies chest pain Respiratory/Chest Respiratory/Chest: Denies cough or dyspnea Gastrointestinal Gastrointestinal: Denies abdominal pain Musculoskeletal Musculoskeletal: Denies back pain Integumentary Reports other Details: Left third toe laceration ; Denies rash Neurologic Neurologic: Denies paresthesias or weakness Allergic/Immunologic Allergic/Immunologic ED: Denies urticaria EXAM Physical Exam Const Vital Signs: 12/11/20 01:19 12/11/20 01:20 Temperature 98.4 F 98.4 F Temperature Source Oral Oral Pulse Rate 68 68 Respiratory Rate 16 16 Blood Pressure 130/87 H 130/87 H Blood Pressure Mean 101 101 Pulse Ox 100 100 Oxygen Delivery Method Room Air Room Air Positive well nourished and well developed General Appearance ED: well developed HEENT Reports moist mucous membranes Eyes PERRL and EOMs intact bilaterally Chest Wall inspection of chest normal and palpation of chest normal Resp normal respiratory effort and clear to auscultation bilaterally Cardio regular rate and regular rhythm GI non-tender Palpation: soft Extremity Extremity Narrative: 1 cm flap laceration to the undersurface of the left third toe. No active bleeding. Full range of motion with no bony tenderness. Neuro oriented x3 Sensorium / Orientation: alert Skin Skin Narrative: As above MDM MDM MDM Narrative Medical decision making narrative: Tetanus update is provided. Wound is cleansed and let solution applied. Treatment and Re-Evaluation Comments:: After allowing let solution to sit on the wound wound is cleansed and sealed with Dermabond. Wound care instructions are provided. Discharge Plan Triage Chief Complaint: Wound ED Provider: Ena Cuellar Dx/Rx/DC Orders Clinical Impression: Laceration of toe Instructions: ED Laceration: Skin Adhesive Prescriptions: No Action albuterol sulfate [Ventolin HFA] 1 INHALER inhaler 1 - 2 puff inhalation Q4H PRN PRN (Reason: Wheezing) Qty: 1 RF: 0 buprenorphine-naloxone 0 tablet, sublingual 1 tab SL BREAKFAST RF: 0 vit [id number]-dha 1 EACH capsule 1 day PO DAILY RF: 0 Buprenorphin-Naloxon 8-2 mg Sl 0.5 tab sublingual QHS RF: 0 Buprenorphin-Naloxon 8-2 mg Sl 0.5 tab sublingual DAILY RF: 0 ibuprofen 600 MG tablet 600 mg PO Q6H PRN PRN (Reason: Pain Score 1-3) Qty: 30 RF: 0 Primary Care Provider: Scar Riggs Referrals: Scar Riggs MD [Primary Care Provider] - As Needed Disposition Disposition: Home, Self Care
[2020-12-11] MEDS: Diphth,Pertuss(Acell),Tet Vac 0.5 ML Vial IM (01:36)
[2020-12-11] MEDS: Lidocaine/Epi/Tetracaine 50 ML 1 APPLIC TOPICAL (01:37)
== END 2020-12-11 02:10 | disposition home or self-care (01) ==
LOC: ED 02:04
PROVIDERS: Emergency Provider Emergency Medicine; PCP Family Medicine
DX: S91.115A Laceration without foreign body of left lesser toe(s) without damage to nail, initial encounter (principal); M79.7 Fibromyalgia; F90.9 Attention-deficit hyperactivity disorder, unspecified type; F41.0 Panic disorder [episodic paroxysmal anxiety]; Z79.899 Other long term (current) drug therapy; F17.210 Nicotine dependence, cigarettes, uncomplicated; Z23 Encounter for immunization; W26.8XXA Contact with other sharp object(s), not elsewhere classified, initial encounter; Y93.01 Activity, walking, marching and hiking; Y92.008 Other place in unspecified non-institutional (private) residence as the place of occurrence of the external cause; Y99.8 Other external cause status
CPT/HCPCS: 12001; 90471; 90715; 99283